=== PATIENT | male | born 1935 | race Caucasian/White ===

== ENCOUNTER → 2016-12-06 | Outpatient (CLI) | payer OTHER | LOC: FIMAGING 08:02 | PROVIDERS: ATTEND Orthopaedic Surgery | DX: M16.11 Unilateral primary osteoarthritis, right hip (principal); M24.851 Other specific joint derangements of right hip, not elsewhere classified ==

== ENCOUNTER → 2016-12-23 | Outpatient (CLI) | payer OTHER ==
[~2016-12-23] MED LIST: DEPO METHYLPREDNISOLONE 80 MG/ML SDV ONE; IOPAMIDOL (ISOVUE-300) 50 ML VIAL IV ONE; LIDOCAINE 1% 30 ML SDV ONE; NA BICARBONATE 50 MEQ/50 ML VIAL ONE; ROPIVACAINE HCL 150 MG/30 ML INJ ONE
== END ==
LOC: FIMAGING 12:55
PROVIDERS: ATTEND Orthopaedic Surgery
PROC: 3E0U3BZ Introduction of Anesthetic Agent into Joints, Percutaneous Approach (ICD-10-PCS; principal; 2016-12-23)
PROC: 3E0U33Z Introduction of Anti-inflammatory into Joints, Percutaneous Approach (ICD-10-PCS; principal; 2016-12-23)
DX: M16.11 Unilateral primary osteoarthritis, right hip (principal)
CPT/HCPCS: 20610; J1020; J2795; Q9967; J1040

== ENCOUNTER → 2017-01-22 | Outpatient (CLI) | payer OTHER | LOC: BRMIMAGING 13:11 | PROVIDERS: ATTEND Internal Medicine Nephrology | DX: N18.3 Chronic kidney disease, stage 3 (moderate) (principal) | CPT/HCPCS: 76770-PO ==

== ENCOUNTER 2018-05-20 16:21 | Emergency (ER) | payer OTHER ==
[2018-05-20] MEDS ORDERED: LET GEL TOPICAL 1 EA SYR TP ONE (17:55)
--- NOTE | 2018-05-20 17:55 | EDPHY ---
H & P Stated Complaint: trip while hiking, r knee abrasion - Personal History Current Tetanus Diphtheria and Acellular Pertussis (TDAP): Yes - Medical/Surgical History Other PMH: htn, leg surgery, hernia repair,cataract surgery - Social History Smoking Status: Never smoked Time Seen by Provider: 05/20/18 17:40 HPI/ROS: CHIEF COMPLAINT: Mechanical fall hit head hit right leg HISTORY OF PRESENT ILLNESS: 82-year-old male arrives via private vehicle, not a trauma activation, no anticoagulant use history, complaining of mechanical fall when he was hiking on gravel, impacted his right knee sustaining an abrasion as well as impacting his right frontal region. No loss of consciousness. No nausea or vomiting. No straddle injury. No syncope. No amnesia. He was able to ambulate out and drive to the ER. No lower extremity pain no particular pain. PRIMARY CARE PROVIDER: Dr. Lety Go REVIEW OF SYSTEMS: [10 systems reviewed and negative with exception of illness mention the history of present illness PAST MEDICAL/SURGICAL HISTORY: no anticoagulant use, SOCIAL HISTORY: denies alcohol use at time of incident PHYSICAL EXAM 1) GENERAL: Well-developed, well-nourished, alert and oriented. Appears to be in no acute distress. Answering questions appropriately. 2) HEAD: Normocephalic, right lateral eyebrow abrasion 3) HEENT: Pupils equal, round, reactive to light bilaterally. Negative Horners. Nasopharynx, oropharynx, clear. No deformity or angulation of nose. No septal hematoma. No rhinorrhea. No oral trauma. Ears bilaterally with normal tympanic membranes. No hemotympanum. No fluid or blood in the external auditory canal. Right infraorbital ecchymosis No West[place] sign. Teeth are normally aligned with no gross malocclusion, TMJ bilaterally nontender, facial bones nontender including the zygomatic arch, maxilla mandible. 4) NECK: No cervical collar is on. Posterior cervical spine is nontender, no stepoff, no effusion. Full range of motion which does not elicit any midline cervical spine pain, no posterior midline tenderness, no step-off. 5) LUNGS: Clear to auscultation bilaterally, no wheezes, no rhonchi, no retractions. No obvious signs of trauma. No chest wall pain. No flaring, no grunting. Moving symmetrically. No crepitus. 6) HEART: [Regular rate and rhythm, 7) ABDOMEN: No guarding, no rebound, no focal tenderness, no peritoneal signs, no signs of trauma, no ecchymosis 8) MUSCULOSKELETAL: Right lower extremity: Anterior knee abrasion with full pain-free range of motion no underlying patellar osseous discomfort. Full weight-bearing. Soft compartments. Left lower extremity no signs of trauma. Left upper extremity: Ecchymosis to his left hand with no underlying osseous discomfort no articular discomfort normal cascading of digits. Brisk capillary refill and neurovascular intact right upper extremity abrasion to right wrist with no underlying osseous discomfort no snuffbox pain. Neurovascular intact Moving all extremities, no focal areas of tenderness, no obvious trauma. 9) BACK: No midline vertebral tenderness, no fluctuance, no step-off, no obvious trauma, no visual or palpable abnormality. 10) SKIN: positive abrasion right anterior knee DIFFERENTIAL DIAGNOSIS: Not necessarily in any particular order, my differential diagnosis includes, but is not limited to, concussion, skull fracture, intraparenchymal contusion, subarachnoid, subdural and epidural hematoma. The patient understands that this diagnosis is provisional and can never be 100% accurate. (Kay Francois) Constitutional: Initial Vital Signs Temperature (C) 36.9 C 05/20/18 16:27 Heart Rate 76 05/20/18 16:27 Respiratory Rate 16 05/20/18 16:27 Blood Pressure 143/76 H 05/20/18 16:27 O2 Sat (%) 96 05/20/18 16:27 O2 Delivery Mode Room Air Allergies/Adverse Reactions: cefazolin [From Ancef] Allergy (Verified 05/20/18 16:25) clindamycin Allergy (Verified 05/20/18 16:25) promethazine [From Phenergan] Allergy (Verified 05/20/18 16:25) vancomycin Allergy (Verified 05/20/18 16:25) antibiotic Allergy (Uncoded 05/20/18 16:25) Home Medications: Medication Instructions Recorded Allopurinol 05/20/18 Hydrochlorothiazide 05/20/18 Triampterine 05/20/18 Medical Decision Making - Diagnostics Imaging Results: Imaging Impressions Head CT 05/20/18 17:51 Impression: 1. No acute fracture or evidence of acute intracranial injury. 2. Minimal right frontal and periorbital soft tissue swelling. Findings discussed with Emergency Department physician banking assistantKay at 05/20/2018 18:18. Imaging Impressions Head CT 05/20/18 17:51 Impression: 1. No acute fracture or evidence of acute intracranial injury. 2. Minimal right frontal and periorbital soft tissue swelling. Findings discussed with Emergency Department physician banking assistantKay at 05/20/2018 18:18. Images reviewed myself (Kay Francois) ED Course/Re-evaluation: I did not see this patient while he was in the emergency department. However his care was discussed with the PA while the patient was in the department. I agree with treatment and management (Rolo Osman) 5:34 p.m. : Head CT ordered in this patient for trauma for the following indication: Greater than 65 years old. Regarding his right lower extremity doubt osseous abnormality. He has full weight-bearing. Will apply topical anesthetic anesthetic, clean wound. He has other areas of ecchymosis and abrasion with no underlying osseous discomfort. Patient is agreeable with this plan. I saw this patient independently based on established practice protocols. Care of patient under supervision of secondary supervising physician Dr Rolo Osman . 6:28 p.m.: Re-evaluation, discussed his negative head CT. His wound is cleansed in the ER will be allowed to heal via secondary intention. Antibiotic ointment placed. Usual and customary head injury and wound precautions instructions provided. He feels comfortable being discharged. (Kay Francois) Departure - Departure Disposition: Home, Routine, Self-Care Clinical Impression: Hiking on level or elevated terrain, Abrasion, right knee, initial encounter Head injury Qualifiers: Encounter type: initial encounter Qualified Code(s): S09.90XA - Unspecified injury of head, initial encounter Condition: Good Instructions: Head Injury (ED), Abrasion (ED) Additional Instructions: ALTHOUGH THERE IS NO EVIDENCE OF SERIOUS HEAD INJURY AT THIS TIME, DELAYED SIGNS CAN APPEAR 24 TO 48 HOURS AFTER INJURY. PLEASE RETURN TO THE EMERGENCY DEPARTMENT (ED) IMMEDIATELY IF YOU HAVE INCREASED HEADACHE, PERSISTENT HEADACHE , VOMITING, WEAKNESS, CONFUSION OR VISUAL PROBLEMS. WE RECOMMEND THAT YOU DO NOT RESUME CONTACT SPORTS OR ACTIVITIES THAT TAKE COORDINATION OR BALANCE SUCH SKIING OR RIDING A BICYCLE UNTIL CLEARED TO DO SO BY YOUR DOCTOR OR BY A NEUROLOGIST. Return to the ER if you develop redness, swelling, discharge, warmth to the wound, red streaks going up your leg, or any other symptoms that concern you. Referrals: Alejandrina Allen MD [Primary Care Provider] - 2-3 days, call for appt.
[2018-05-20 18:47] VITALS: BP 130/76
== END 2018-05-20 18:47 | disposition home or self-care (01) ==
DX: S09.90XA Unspecified injury of head, initial encounter (principal); S80.211A Abrasion, right knee, initial encounter; W01.10XA Fall on same level from slipping, tripping and stumbling with subsequent striking against unspecified object, initial encounter; Y93.01 Activity, walking, marching and hiking

== ENCOUNTER 2019-02-10 19:00 | Inpatient (IN) | payer OTHER ==
[2019-02-10] MEDS ORDERED: ACETAMINOPHEN 325 MG TAB PO ONE (19:10)
[2019-02-10] MEDS ORDERED: NS 1,000 ML IV ONE ×2 (19:27→20:31)
[2019-02-10 19:35] LABS: PLATELET COUNT 194 10^3/uL (150-400)
[2019-02-10] MEDS ORDERED: METOCLOPRAMIDE 10 MG/2 ML VIAL IVP ONE (19:40)
--- NOTE | 2019-02-10 19:44 | EDPHY ---
H & P Stated Complaint: Blood in Urine Time Seen by Provider: 02/10/19 19:03 HPI/ROS: CHIEF COMPLAINT: Urinary tract infection, vomiting HISTORY OF PRESENT ILLNESS: 83-year-old male presents with dysuria and vomiting. Onset dysuria and hematuria 3 days ago. The symptoms have been moderate and gradually increasing. This afternoon he developed fever and chills , associated with vomiting and generalized weakness. He was seen at [facility] urgent care just prior to arrival and diagnosed with a urinary tract infection. He was given 1 dose of Levaquin orally, which he promptly vomited. Allen catheter was placed due to concern for urinary retention, but he did not actually have urinary retention. He continues to have a Allen catheter in place. He was transported to the ED by ambulance. Continues to complain of severe nausea and urinary frequency. REVIEW OF SYSTEMS: complete 10 point ROS reviewed and is negative except for the noted elements in the HPI Source: Patient, Family - Personal History Current Tetanus/Diphtheria Vaccine: Yes Current Tetanus Diphtheria and Acellular Pertussis (TDAP): Yes - Medical/Surgical History Other PMH: htn, leg surgery, hernia repair,cataract surgery, gout - Social History Smoking Status: Never smoked Alcohol Use: Sober Drug Use: None Additional Social History: - Physical Exam Exam: General Appearance: Alert, difficulty answering questions Eyes: Pupils equal and round, no conjunctival pallor or injection ENT, Mouth: Mucous membranes slightly dry Neck: Normal inspection Respiratory: Lungs are clear to auscultation Cardiovascular: Regular rate and rhythm Gastrointestinal: Abdomen is soft and nontender Genitourinary: Allen catheter in place Neurological: Alert and oriented, nonfocal exam Skin: Warm and dry, no rash Extremities: Normal inspection Psychiatric: Flat affect Constitutional: Initial Vital Signs Temperature (C) 38.3 C 02/10/19 19:06 Heart Rate 87 02/10/19 19:06 Respiratory Rate 18 02/10/19 19:06 Blood Pressure 160/75 H 02/10/19 19:06 O2 Sat (%) 93 02/10/19 19:06 O2 Delivery Mode Room Air O2 (L/minute) 1.5 Allergies/Adverse Reactions: vancomycin Allergy (Mild, Verified 02/10/19 20:32) cefazolin [From Ancef] Allergy (Verified 02/10/19 19:05) clindamycin Allergy (Verified 02/10/19 19:05) promethazine [From Phenergan] Allergy (Verified 02/10/19 19:05) antibiotic Allergy (Uncoded 05/20/18 16:25) Home Medications: Medication Instructions Recorded Allopurinol [Allopurinol 300 MG 300 mg PO DAILY 05/20/18 (RX)] Aspirin EC [Aspirin EC 81 mg (*)] 81 mg PO DAILY 05/20/18 Calcium Carbonate [Oyster Shell 500 mg PO DAILY 02/10/19 Calcium 500 mg (*)] Cholecalciferol Vit D3 [Vitamin D3 1,000 units PO DAILY 02/10/19 (*)] Herbals/Supplements -Info Only 1 ea PO DAILY 02/10/19 Multivitamins [Multivitamin (*)] 1 each PO DAILY 02/10/19 Triamterene/Hctz 75/50 [Maxzide 1 tab PO DAILY 02/10/19 75-50 mg Tab (*)] levOFLOXACIN [Levaquin] 500 mg PO DAILY #7 tablet 02/12/19 Medical Decision Making ED Course/Re-evaluation: This patient presents with urinary tract infection and vomiting. He has already received Zofran 4 mg IV x2. On my initial evaluation, he was vomiting. Reglan 10 mg IV given. Will give rectal Tylenol for fever. IV normal saline 1 L given. Old medical record from [facility] reviewed and reveals a urinary tract infection. A urine culture was sent as well as blood cultures. I reviewed his allergies, which include Ancef, vancomycin and clindamycin. Levaquin 750 mg IV given. He does not meet SIRS criteria. Lactate is elevated at 2.2. Repeat VS: HR 84, BP 124/65, Temp 37.6. Still does not meet SIRS criteria. Will repeat lactate, give 2nd liter of NS, and closely obs. Pt feels better after IV Reglan, no subsequent vomiting. Allen catheter removed. Repeat lactate 1.9. The hospitalist service was consulted for admission. Differential Diagnosis: Differential diagnosis includes pyelonephritis, cholecystitis, influenza, cellulitis, pneumonia, abscess, meningitis. - Data Points Laboratory Results: Laboratory Results 02/11/19 04:54 02/11/19 04:54 Microbiology Results: MICROBIOLOGY 02/10/19 21:35 Urine,Catheterized Urine Culture - Final Gram Neg Demetris Lact[employer] Medications Given: Discontinued Medications Acetaminophen (Tylenol) 650 mg PO EDNOW ONE Stop: 02/10/19 19:11 Last Admin: 02/10/19 19:22 Dose: 650 mg Acetaminophen (Tylenol Rectal) 650 mg [place] EDNOW ONE Stop: 02/10/19 19:46 Last Admin: 02/10/19 19:58 Dose: 650 mg Acetaminophen (Tylenol) 650 mg PO Q4HRS PRN PRN Reason: Pain, Mild/Fever, Can Take PO Stop: 08/09/19 20:04 Last Admin: 02/11/19 20:38 Dose: 650 mg Allopurinol (Allopurinol) 300 mg PO DAILY OPAL Stop: 08/10/19 08:59 Last Admin: 02/12/19 10:09 Dose: 300 mg Aspirin Buffered (Aspirin Ec) 81 mg PO DAILY OPAL Stop: 08/10/19 08:59 Last Admin: 02/12/19 10:09 Dose: 81 mg Calcium Carbonate (Oyster Shell Calcium) 500 mg PO DAILY OPAL Stop: 08/10/19 08:59 Last Admin: 02/12/19 10:09 Dose: 500 mg Cholecalciferol (Vitamin D) 1,000 units PO DAILY OPAL Stop: 08/10/19 08:59 Last Admin: 02/12/19 10:09 Dose: 1,000 units Enoxaparin Sodium (Lovenox) 40 mg SC DAILY OPAL Stop: 08/10/19 08:59 Last Admin: 02/12/19 10:08 Dose: 40 mg Sodium Chloride (Ns) 1,000 mls @ 0 mls/hr IV ONCE ONE; Wide Open PRN Reason: Protocol Stop: 02/10/19 19:28 Last Admin: 02/10/19 19:44 Dose: 1,000 mls Levofloxacin/Dextrose (Levaquin 750 Mg (Premix)) 150 mls @ 100 mls/hr IV EDNOW ONE PRN Reason: Protocol Stop: 02/10/19 21:10 Last Admin: 02/10/19 19:53 Dose: 150 mls Levofloxacin/Dextrose (Levaquin 750 Mg (Premix)) 150 mls @ 100 mls/hr IV Q2D@ 0900 OPAL PRN Reason: Protocol Stop: 03/14/19 08:59 Last Admin: 02/12/19 10:08 Dose: 150 mls Sodium Chloride (Ns) 1,000 mls @ 125 mls/hr IV CONT OPAL Stop: 08/09/19 20:14 Last Admin: 02/11/19 06:35 Dose: 1,000 mls Sodium Chloride (Ns) 1,000 mls @ 0 mls/hr IV ONCE ONE; Wide Open PRN Reason: Protocol Stop: 02/10/19 20:32 Last Admin: 02/10/19 21:22 Dose: Not Given Metoclopramide HCl (Reglan Injection) 10 mg IVP EDNOW ONE Stop: 02/10/19 19:41 Last Admin: 02/10/19 19:45 Dose: 10 mg Multivitamins (Tab-A-Marzena) 1 each PO DAILY OPAL Stop: 08/10/19 08:59 Last Admin: 02/12/19 10:08 Dose: 1 each Departure - Departure Disposition: [facility] Inpatient Acute Clinical Impression: UTI (urinary tract infection) Qualifiers: Urinary tract infection type: site unspecified Hematuria presence: with hematuria Qualified Code(s): N39.0 - Urinary tract infection, site not specified Condition: Fair
[2019-02-10] MEDS ORDERED: ACETAMINOPHEN 650 MG SUPP PR ONE (19:45)
[2019-02-10] MEDS ORDERED: oxyCODONE IR 5 MG TAB PO PRN (20:05)
[2019-02-10] MEDS ORDERED: PROMETHAZINE HCL 25 MG/ML INJ IVP PRN (20:05)
[2019-02-10] MEDS ORDERED: HYDROmorphONE/DILAUDID 1 MG/ML INJ IVP PRN (20:05)
[2019-02-10] MEDS ORDERED: HYDROCODONE/APAP 5/325 TAB PO PRN (20:05)
[2019-02-10] MEDS ORDERED: ONDANSETRON DISINTEGRATING 4 MG TAB PO PRN (20:05)
[2019-02-10] MEDS ORDERED: ONDANSETRON 4 MG/2 ML VIAL IVP PRN (20:05)
--- NOTE | 2019-02-10 21:08 | PDGENHP ---
History and Physical - Chief Complaint UTI dx at PCP/somnolent - History of Present Illness 83 yo M with PMH that includes HTN, CKD, and BPH and sent here from [facility] urgent care for evaluation of hematuria associated with burning urination and chills. At the time of my evaluation, patient is somnolent and minimally interactive. Apparently he has been having burning with urination, increased frequency and urgency at home and upon presentation to urgent care began to develop nausea and vomiting. He was given an oral dose of levaquin at and this was vomited. At urgent care a dailey catheter was placed for concerns of urinary retention, removed in ER without any noted retention but is incontinent. He has been a bit somnolent but arousable and somewhat confused since arrival here, per that is not his usual baseline but has developed today. History Information - Allergies/Home Medication List Allergies/Adverse Reactions: vancomycin Allergy (Mild, Verified 02/10/19 20:32) cefazolin [From Ancef] Allergy (Verified 02/10/19 19:05) clindamycin Allergy (Verified 02/10/19 19:05) promethazine [From Phenergan] Allergy (Verified 02/10/19 19:05) antibiotic Allergy (Uncoded 05/20/18 16:25) Home Medications: Allopurinol [Allopurinol 300 MG (RX)] 300 mg PO DAILY 05/20/18 [Last Taken 02/10] Aspirin EC [Aspirin EC 81 mg (*)] 81 mg PO DAILY 05/20/18 [Last Taken 02/10/19] Calcium Carbonate [Oyster Shell Calcium 500 mg (*)] 500 mg PO DAILY 02/10/19 [ Last Taken 02/10/19] Cholecalciferol Vit D3 [Vitamin D3 (*)] 1,000 units PO DAILY 02/10/19 [Last Taken 02/10/19] Herbals/Supplements -Info Only 1 ea PO DAILY 02/10/19 [Last Taken 02/10/19] Multivitamins [Multivitamin (*)] 1 each PO DAILY 02/10/19 [Last Taken 02/10/19] Triamterene/Hctz 75/50 [Maxzide 75-50 mg Tab (*)] 1 tab PO DAILY 02/10/19 [Last Taken 02/10/19] I have personally reviewed and updated: family history, medical history, social history, surgical history - Past Medical History cancer (skin ), hypertension Additional medical history: BPH. CKD--baseline 1.5 - Surgical History Additional surgical history: cataract - Family History Positive for: non-pertinent - Social History Smoking Status: Never smoked Alcohol Use: Occasionally Drug Use: None Additional social history: , lives independently Review of Systems Review of Systems: ROS: 10pt was reviewed & negative except for what was stated in HPI & below Physical Exam Physical Exam: Temp Pulse Resp BP Pulse Ox 37.6 C 86 16 124/65 H 95 02/10/19 20:31 02/10/19 20:31 02/10/19 20:31 02/10/19 20:31 02/10/19 20:31 O2 (L/minute) 2 Constitutional: no apparent distress, appears nourished Eyes: PERRL, anicteric sclera Ears, Nose, Mouth, Throat: moist mucous membranes, ears appear normal Cardiovascular: regular rate and rhythym, no murmur, rub, or gallop, No edema Respiratory: no respiratory distress, no rales or rhonchi Gastrointestinal: normoactive bowel sounds, soft, non-tender abdomen Genitourinary: no bladder tenderness, dailey in urethra Skin: warm, normal color Musculoskeletal: full muscle strength Neurologic: No AAOx3 Psychiatric: encephalopathic Lab Data & Imaging Review 02/10/19 19:12 02/10/19 19:12 WBC 9.24 10^3/uL (3.80-9.50) 02/10/19 19:12 RBC 4.39 10^6/uL (4.40-6.38) L 02/10/19 19:12 Hgb 15.1 g/dL (13.7-17.5) 02/10/19 19:12 Hct 45.3 % (40.0-51.0) 02/10/19 19:12 MCV 103.2 fL (81.5-99.8) H 02/10/19 19:12 MCH 34.4 pg (27.9-34.1) H 02/10/19 19:12 MCHC 33.3 g/dL (32.4-36.7) 02/10/19 19:12 RDW 13.5 % (11.5-15.2) 02/10/19 19:12 Plt Count 194 10^3/uL (150-400) 02/10/19 19:12 MPV 11.3 fL (8.7-11.7) 02/10/19 19:12 Neut % (Auto) 80.4 % (39.3-74.2) H 02/10/19 19:12 Lymph % (Auto) 16.0 % (15.0-45.0) 02/10/19 19:12 [place] % (Auto) 1.7 % (4.5-13.0) L 02/10/19 19:12 Eos % (Auto) 1.4 % (0.6-7.6) 02/10/19 19:12 Baso % (Auto) 0.2 % (0.3-1.7) L 02/10/19 19:12 Nucleat RBC Rel Count 0.0 % (0.0-0.2) 02/10/19 19:12 Absolute Neuts (auto) 7.42 10^3/uL (1.70-6.50) H 02/10/19 19:12 Absolute Lymphs (auto) 1.48 10^3/uL (1.00-3.00) 02/10/19 19:12 Absolute Monos (auto) 0.16 10^3/uL (0.30-0.80) L 02/10/19 19:12 Absolute Eos (auto) 0.13 10^3/uL (0.03-0.40) 02/10/19 19:12 Absolute Basos (auto) 0.02 10^3/uL (0.02-0.10) 02/10/19 19:12 Absolute Nucleated RBC 0.00 10^3/uL (0-0.01) 02/10/19 19:12 Immature Gran % 0.3 % (0.0-1.1) 02/10/19 19:12 Immature Gran # 0.03 10^3/uL (0.00-0.10) 02/10/19 19:12 VBG Lactic Acid 1.9 mmol/L (0.7-2.1) 02/10/19 21:00 Sodium 139 mEq/L (135-145) 02/10/19 19:12 Potassium 3.9 mEq/L (3.5-5.2) 02/10/19 19:12 Chloride 102 mEq/L (97-110) 02/10/19 19:12 Carbon Dioxide 25 mEq/l (22-31) 02/10/19 19:12 Anion Gap 12 mEq/L (6-14) 02/10/19 19:12 BUN 32 mg/dL (7-23) H 02/10/19 19:12 Creatinine 1.7 mg/dL (0.7-1.3) H 02/10/19 19:12 Estimated GFR 39 02/10/19 19:12 Glucose 84 mg/dL (70-100) 02/10/19 19:12 Calcium 10.0 mg/dL (8.5-10.4) 02/10/19 19:12 Urine Color YELLOW 02/10/19 20:30 Urine Appearance HAZY 02/10/19 20:30 Urine pH 5.0 (5.0-7.5) 02/10/19 20:30 Ur Specific [place] 1.012 (1.002-1.030) 02/10/19 20:30 Urine Protein 1+ (NEGATIVE) H 02/10/19 20:30 Urine Ketones NEGATIVE (NEGATIVE) 02/10/19 20:30 Urine Blood 3+ (NEGATIVE) H 02/10/19 20:30 Urine Nitrate NEGATIVE (NEGATIVE) 02/10/19 20: Urine Bilirubin NEGATIVE (NEGATIVE) 02/10/19 20:30 Urine Urobilinogen NEGATIVE EU (0.2-1.0) 02/10/19 20:30 Ur Leukocyte Esterase 2+ (NEGATIVE) H 02/10/19 20:30 Urine RBC 50-182 /hpf (0-3) H 02/10/19 20:30 Urine WBC 25-50 /hpf (0-3) H 02/10/19 20:30 Ur Epithelial Cells NONE SEEN /lpf (NONE-1+) 02/10/19 20:30 Urine Bacteria 1+ /hpf (NONE SEEN) H 02/10/19 20:30 Urine Mucus TRACE /lpf (NONE-1+) 02/10/19 20:30 Ur Random Creatinine 14.8 mg/dL 02/10/19 20:30 Ur Random Sodium 92 mEq/L (30-90) H 02/10/19 20:30 Urine Glucose NEGATIVE (NEGATIVE) 02/10/19 20:30 Assessment & Plan Assessment: UTI (urinary tract infection) (Acute) 83 yo M with PMH of HTN, BPH presenting with UTI associated with n/v and AMS # UTI: symptomatic with dysuria, urgency and frequency and UA c/w infection. He does have cephalosporin allergy reported so started on levofloxacin, urine cultures pending. # metabolic encephalopathy: decreased mentation and confusion noted on arrival which is not usual baseline, due to above, will continue to monitor # sol on CKD: baseline creatinine of around 1.5 currently increased to 1.7 in the setting of UTI, report of retention at however good UOP here after removing dailey, will get serial bladder scan, IVF overnight and trend, avoid nephrotoxins, holding hctz/triamterene # HTN: only on diuretic for that which given ckd maybe isn't a great choice, holding that for now, bp currently wnl # n/v: resolved, in setting of uti # hematuria: suspect at least in part due to UTI and possibly dailey trauma, recommend f/u UA after dc to be sure this resolves # observation status Patient new to my care. Old records reviewed and summarized as above. Care plan reviewed with ER doctor as above.
[2019-02-10] MEDS: NS 1,000 ML IV SCH (22:19)
[2019-02-11] MEDS: ACETAMINOPHEN 325 MG TAB PO PRN ×2 (02:30→20:38)
[2019-02-11 05:46] LABS: PLATELET COUNT 149 10^3/uL (150-400)
[2019-02-11] MEDS: NS 1,000 ML IV SCH (06:35)
[2019-02-11] MEDS: ALLOPURINOL 300 MG TAB PO SCH (09:45)
[2019-02-11] MEDS: ASPIRIN EC 81 MG TAB PO SCH (09:45)
[2019-02-11] MEDS: CALCIUM CARBONATE 500 MG TAB PO SCH (09:46)
[2019-02-11] MEDS: MULTIVITAMINS 1 EACH TAB PO SCH (09:46)
[2019-02-11] MEDS: ENOXAPARIN 40 MG/0.4 ML SYR SC SCH (09:46)
[2019-02-11] MEDS: CHOLECALCIFEROL VIT D3 1,000 UNITS TAB PO SCH (09:46)
--- NOTE | 2019-02-11 13:21 | HOSPPROG ---
Hospitalist Progress Note Assessment/Plan: 83 yo M with PMH of HTN, BPH presenting with UTI associated with n/v and AMS # UTI: symptomatic with dysuria, urgency and frequency and UA c/w infection. He does have cephalosporin allergy reported so started on levofloxacin, urine cultures pending. # metabolic encephalopathy: decreased mentation and confusion noted on arrival which is not usual baseline, due to above, will continue to monitor # sol on CKD: baseline creatinine of around 1.5 currently increased n the setting of UTI, report of retention at however good UOP here after removing dailey, will get serial bladder scan, avoid nephrotoxins, holding hctz/ triamterene # HTN: only on diuretic for that which given ckd maybe isn't a great choice, holding that for now, bp currently wnl -on dc he wants to cont the diuretic until f/u with his PCP # n/v: resolved, in setting of uti # hematuria: suspect at least in part due to UTI and possibly dailey trauma, recommend f/u UA after dc to be sure this resolves Plan: the pt's BP was soft this morning even with IVF at 150ml/hr. BP is better now and urine output has increase. Trial off IVF Cont IV abx Repeat labs in am, Leukocytosis noted Cont to monitor overnight. Given low BP despite fluids, likely too ill for d/c at this time Subjective: feels better overall. BP low earlier. still with dysuria but improving Objective: Vital Signs Temp Pulse Resp BP Pulse Ox 36.7 C 53 L 14 116/53 L 96 02/11/19 11:17 02/11/19 11:17 02/11/19 11:17 02/11/19 11:17 02/11/19 11:17 Laboratory Results 02/11/19 04:54 02/11/19 04:54 02/10/19 02/11/19 02/12/19 05:59 05:59 05:59 Intake Total 2225 Output Total 475 250 Balance 1750 -250 - Physical Exam Constitutional: no apparent distress Eyes: PERRL, EOMI Ears, Nose, Mouth, Throat: moist mucous membranes, hearing normal Cardiovascular: regular rate and rhythym, No edema Respiratory: no respiratory distress, no rales or rhonchi, clear to auscultation Gastrointestinal: normoactive bowel sounds Skin: warm Neurologic: AAOx3 Psychiatric: interacting appropriately, not anxious, not encephalopathic Lymph, Heme, Immunologic: No petechiae ICD10 Worksheet Patient Problems: Problems Problem Status Onset UTI (urinary tract infection) Acute
--- NOTE | 2019-02-11 13:57 | PDMN ---
Medical Necessity Medical necessity: Change to IP, as of 02/11/19, per & MCG M-300; los >2 mn for ongoing management of UTI w/metabolic encephalopathy & JAY on CKD; cxs pending; requiring further monitoring, follow-up labs & IV abx; comorbid advanced age
--- NOTE | 2019-02-11 13:57 | ASMTCMCOM ---
CM Note CM Note Notes: CM reviewed pt chart and spoke with RN. Pt is a 83- year old male. Lives with his at the [facility]. RN reports that he is cleared by therapys. When medically stable pt will discharge independent. Plan: Independent Date Signed: 02/11/2019 01:56 PM Electronically Signed By:Arely Kumar
[2019-02-12 05:29] LABS: PLATELET COUNT 135 10^3/uL (150-400)
[2019-02-12 08:13] VITALS: BP 132/70
[2019-02-12] MEDS: MULTIVITAMINS 1 EACH TAB PO SCH (10:08)
[2019-02-12] MEDS: ENOXAPARIN 40 MG/0.4 ML SYR SC SCH (10:08)
[2019-02-12] MEDS: ASPIRIN EC 81 MG TAB PO SCH (10:09)
[2019-02-12] MEDS: CALCIUM CARBONATE 500 MG TAB PO SCH (10:09)
[2019-02-12] MEDS: ALLOPURINOL 300 MG TAB PO SCH (10:09)
[2019-02-12] MEDS: CHOLECALCIFEROL VIT D3 1,000 UNITS TAB PO SCH (10:09)
--- NOTE | 2019-02-13 18:57 | GDS ---
[f rep st] DISCHARGE SUMMARY CONSULTS: None. PROCEDURES: None. For H and P, please see previously entered note by Dr. Hansen. ADMISSION DIAGNOSES: 1. Symptomatic urinary tract infection with acute nausea, vomiting. 2. Metabolic encephalopathy. 3. Acute kidney injury in the setting of chronic kidney disease. 4. Hypertension. DISCHARGE DIAGNOSES: 1. Urinary tract infection, culture negative, consider prostatitis. 2. Metabolic encephalopathy, resolved. 3. Acute kidney injury, resolved. 4. Hypertension, stable. 5. Hematuria, needs followup evaluation and consider Urology referral. COURSE IN THE EMERGENCY DEPARTMENT: The patient came to the Emergency Department because of being un able to tolerate oral antibiotics. He had gone in earlier to [facility] and diagnosed with a urinary tract infection. He was started on Levaquin orally, but had nausea, vomitin g, and came to the emergency department for treatment. He had a creatinine level of 1.7, which is el evated from his baseline of 1.3 to 1.4. He had protein, blood, red blood cells, and white blood cell s in his urine, and this was sent for culture. He was admitted to the hospital for IV antibiotics, I V fluid, IV levofloxacin. Over the course of his stay, he gradually felt better. He was noted to have a slight temperature at admission of 100.9, but remained afebrile otherwise. On the day of discharge, he felt well, his confirmed no concerns about confusion, he was tolerating a diet without difficulty and he wanted to go home. He was instructed to follow up with his primary care provider at [facility], Dr Juanita Allen. He was given oral Levaquin 500 mg by the Urgent Care and I have instructed him to restart those tablets. I have discussed with him and his that the urine culture did not have any growt h so it is possible this is an acute prostatitis. Recommend rechecking his urine at a followup appoi ntment and deciding if antibiotic duration needs to be extended. DISCHARGE INSTRUCTIONS: He should ensure adequate oral hydration. Should follow up with Dr. Alejandrina Allen at [facility] in the next few days. Should have a recheck of urinalysis and cult ure if indicated. Consider referral to Dr. Elsa Mena, urology. DISCHARGE MEDICATIONS: He should continue all of his chronic home medications. He and his repo rt having a prescription for Levaquin 500 mg at home and that should be taken daily starting the day after discharge. If at any time he has return of nausea, vomiting, fever, blood in his urine, or oth er concerns, he should return for re-evaluation immediately to the emergency department. /[id number]/MODL
== END 2019-02-12 14:46 | disposition home or self-care (01) | DRG 689 ==
LOC: EDUNIT# → INTOOBSV 19:54 → F3N 21:30 → OBSVTOIN 02-11 13:26
PROVIDERS: ADMIT Internal Medicine; ATTEND Internal Medicine
DX: N39.0 Urinary tract infection, site not specified (principal); G93.41 Metabolic encephalopathy; N17.9 Acute kidney failure, unspecified; I12.9 Hypertensive chronic kidney disease with stage 1 through stage 4 chronic kidney disease, or unspecified chronic kidney disease; N18.9 Chronic kidney disease, unspecified; N40.1 Benign prostatic hyperplasia with lower urinary tract symptoms; E86.9 Volume depletion, unspecified
CPT/HCPCS: 96365; 97161-GP; 97165-GO; G0378; J1650; J1956; J2765

== ENCOUNTER → 2019-02-23 | Outpatient (CLI) | payer OTHER | LOC: FIMAGING 10:42 ==

== ENCOUNTER 2019-03-09 12:02 | Observation (INO) | payer OTHER | END 2019-03-10 15:27 | disposition home or self-care (01) | LOC: F3N 12:02 → F1N 20:25 ==